=== PATIENT | female | born 1965 | race Caucasian/White ===

== ENCOUNTER 2017-06-24 18:05 | Emergency (ER) | payer MEDICARE, MEDICAID ==
[~2017-06-24] VITALS: Ht 170.2 cm; Wt 66.4 kg
[~2017-06-24 18:05] MED LIST: OLAN10TA3 PO
[2017-06-24] MEDS ORDERED: levoFLOXACIN 250mg tablet PO ONE (20:45)
[2017-06-24] MEDS ORDERED: glycopyrrolate 0.2mg/ml inj IV ONE (20:45)
[2017-06-24] MEDS ORDERED: normal saline 1000ML IV soln IV ONE (20:45)
[2017-06-24] MEDS ORDERED: oxyCODONE/APAP 10/325mg tablet PO ONE (20:45)
[2017-06-24] MEDS ORDERED: diphenoxylate/atropine tablet (Lomotil) PO ONE (21:55)
[2017-06-24 22:03] LABS: BASOPHILS % (AUTO) 0.3 % (0-1); EOSINOPHILS # (AUTO) 0.4 X10'3 (0-0.9); EOSINOPHILS % (AUTO) 6.2 % (0-6); HEMATOCRIT 28.6 % (35.0-45.0); HEMOGLOBIN 9.5 g/dl (12.0-16.0); LYMPHOCYTES # (AUTO) 1.8 X10'3 (1.1-4.8); LYMPHOCYTES % (AUTO) 27.5 % (21-51); MEAN CORPUSCULAR HEMOGLOBIN 31.1 PG (27.0-31.0); MEAN CORPUSCULAR HGB CONC 33.1 % (33.0-36.5); MEAN CORPUSCULAR VOLUME 93.8 FL (78-98); MEAN PLATELET VOLUME 6.9 FL (7.4-10.4); MONOCYTES # (AUTO) 0.5 X10'3 (0-0.9); MONOCYTES % (AUTO) 8.1 % (2-12); NEUTROPHILS # (AUTO) 3.7 X10'3 (1.8-7.7); NEUTROPHILS % (AUTO) 57.9 % (42-75); PLATELET COUNT 391 X10'3 (140-440); RED BLOOD COUNT 3.05 X10'6 (4.20-5.60); RED CELL DISTRIBUTION WIDTH 16.6 % (11.5-14.5); WHITE BLOOD COUNT 6.5 X10'3 (4.5-11.0)
[2017-06-24 22:16] LABS: ANION GAP 9 (8-16); BLOOD UREA NITROGEN 7 MG/DL (7-18); CHLORIDE 109 MMOL/L (99-107); CREATININE 1.02 MG/DL (0.40-0.90); GLUCOSE 91 MG/DL (70-104); POTASSIUM 3.1 MMOL/L (3.5-5.1); SODIUM 144 MMOL/L (135-145); TOTAL CARBON DIOXIDE 26.4 MMOL/L (24-32)
[2017-06-24] MEDS ORDERED: LEVO500T2 PO (22:16)
[2017-06-24] MEDS ORDERED: ONDA4TAB12 PO (22:16)
[2017-06-24] MEDS ORDERED: OXYC-138 PO (22:16)
[2017-06-24 22:17] LABS: ALANINE AMINOTRANSFERASE 38 U/L (12-78); ALBUMIN 3.2 G/DL (3.4-5.0); ALBUMIN/GLOBULIN RATIO 1.2 (1.1-1.5); ALKALINE PHOSPHATASE 55 IU/L (46-116); ASPARTATE AMINO TRANSFERASE 28 U/L (10-37); BILIRUBIN,TOTAL 0.3 MG/DL (0.1-1.0); BUN/CREATININE RATIO 6.9 (6.6-38.0); CALCIUM 7.6 MG/DL (8.5-10.1); MAGNESIUM 1.3 MG/DL (1.5-2.4); TOTAL PROTEIN 5.8 G/DL (6.4-8.2); eGFR 57 ML/MIN
[2017-06-24] MEDS ORDERED: POTA20TA19 PO (22:20)
[2017-06-24] MEDS ORDERED: iohexol 300mg/ml 100ml inj. ONE (23:24)
[2017-06-25] MEDS ORDERED: diphenoxylate/atropine tablet (Lomotil) PO ONE (00:40)
[2017-06-25] MEDS ORDERED: oxyCODONE/APAP 10/325mg tablet PO ONE (00:40)
[2017-06-25 07:22] VITALS: BP 117/59
[2017-06-26] MEDS ORDERED: LIDO35.4 TP (22:13)
[2017-06-26] MEDS ORDERED: SULF1TAB49 PO (22:30)
[2017-06-26] MEDS ORDERED: LACT1CAP65 PO (22:39)
[2017-06-26] MEDS ORDERED: DIPH1TAB PO (22:39)
== END 2017-06-25 00:40 | disposition home or self-care (01) ==
LOC: ER 18:06
DX: L03.317 Cellulitis of buttock (principal); Z88.5 Allergy status to narcotic agent; Z79.899 Other long term (current) drug therapy; Z90.49 Acquired absence of other specified parts of digestive tract
CPT/HCPCS: 36415; 74177; 80053; 83605; 83735; 84145; 85025; 87040; 96361; 96374; 99285; J3490; J7030; Q9967

== ENCOUNTER 2017-06-26 17:20 | Emergency (ER) | payer MEDICARE, MEDICAID ==
[~2017-06-26] VITALS: Ht 170.2 cm; Wt 54.5 kg
[~2017-06-26 17:20] MED LIST changes: +LEVO500T2 PO; +ONDA4TAB12 PO; +OXYC-138 PO; +POTA20TA19 PO
[2017-06-26] MEDS ORDERED: normal saline 1000ML IV soln IV ONE (21:05)
[2017-06-26] MEDS ORDERED: ondansetron 4mg rapidly disintigrating tab PO ONE (21:05)
[2017-06-26] MEDS ORDERED: morphine 4 MG/ML inj SYRINge IV ONE ×3 (21:05→23:30)
[2017-06-26] MEDS ORDERED: LIDOcaine Viscous 15ml cup MM ONE (21:05)
[2017-06-26 22:10] LABS: BASOPHILS % (AUTO) 0.1 % (0-1); EOSINOPHILS # (AUTO) 0.5 X10'3 (0-0.9); HEMATOCRIT 27.3 % (35.0-45.0); LYMPHOCYTES # (AUTO) 2.3 X10'3 (1.1-4.8); MEAN CORPUSCULAR HEMOGLOBIN 30.8 PG (27.0-31.0); MEAN CORPUSCULAR HGB CONC 32.9 % (33.0-36.5); MEAN CORPUSCULAR VOLUME 93.6 FL (78-98); MEAN PLATELET VOLUME 7.2 FL (7.4-10.4); MONOCYTES # (AUTO) 0.5 X10'3 (0-0.9); MONOCYTES % (AUTO) 7.3 % (2-12); NEUTROPHILS # (AUTO) 3.4 X10'3 (1.8-7.7); NEUTROPHILS % (AUTO) 51.6 % (42-75); PLATELET COUNT 361 X10'3 (140-440); RED BLOOD COUNT 2.92 X10'6 (4.20-5.60); WHITE BLOOD COUNT 6.6 X10'3 (4.5-11.0)
[2017-06-26] MEDS ORDERED: LIDO35.4 TP (22:13)
[2017-06-26 22:16] LABS: PARTIAL THROMBOPLASTIN TIME 22 SECONDS (22-32); PROTHROMBIN TIME 10.7 SECONDS (9.0-12.0)
[2017-06-26 22:20] LABS: ALANINE AMINOTRANSFERASE 30 U/L (12-78); ALBUMIN 2.9 G/DL (3.4-5.0); ALBUMIN/GLOBULIN RATIO 1.1 (1.1-1.5); ALKALINE PHOSPHATASE 50 IU/L (46-116); ANION GAP 10 (8-16); ASPARTATE AMINO TRANSFERASE 16 U/L (10-37); BILIRUBIN,TOTAL 0.3 MG/DL (0.1-1.0); BLOOD UREA NITROGEN 9 MG/DL (7-18); BUN/CREATININE RATIO 10.1 (6.6-38.0); CALCIUM 7.1 MG/DL (8.5-10.1); CHLORIDE 113 MMOL/L (99-107); CREATININE 0.89 MG/DL (0.40-0.90); GLUCOSE 89 MG/DL (70-104); POTASSIUM 3.4 MMOL/L (3.5-5.1); SODIUM 147 MMOL/L (135-145); TOTAL CARBON DIOXIDE 23.6 MMOL/L (24-32); TOTAL PROTEIN 5.5 G/DL (6.4-8.2); eGFR 67 ML/MIN
[2017-06-26] MEDS ORDERED: SULF1TAB49 PO (22:30)
[2017-06-26] MEDS ORDERED: magnesium 1 gm/2ml inj. 1 GM in normal saline 50ml IV soln 48 ML IV ONE ×2 (22:30→23:00)
[2017-06-26] MEDS ORDERED: LACT1CAP65 PO (22:39)
[2017-06-26] MEDS ORDERED: DIPH1TAB PO (22:39)
[2017-06-26] MEDS ORDERED: diphenoxylate/atropine tablet (Lomotil) PO ONE (22:40)
[2017-06-26] MEDS ORDERED: magnesium 2GM in 50ml NS 50 ML IV ONE (23:10)
[2017-06-27 02:31] VITALS: BP 134/58
[2017-06-27 07:43] LABS: C DIFF ANTIGEN NEGATIVE (NEGATIVE); C DIFF SPECIMEN=DIARRHEA? ACCEPTABLE; C DIFFICILE TOXINS A&B NEGATIVE (Neg)
[2017-06-27] MEDS ORDERED: NYST30CR2 TP (11:43)
== END 2017-06-27 02:33 | disposition home or self-care (01) ==
LOC: ER 17:20
DX: R19.7 Diarrhea, unspecified (principal); K62.89 Other specified diseases of anus and rectum; Z98.890 Other specified postprocedural states; Z88.5 Allergy status to narcotic agent; Z79.899 Other long term (current) drug therapy; Z88.8 Allergy status to other drugs, medicaments and biological substances
CPT/HCPCS: 36415; 80053; 83605; 83735; 84145; 85025; 85610; 85730; 87324; 87449; 96361; 96365; 96366; 96375; 96376; 99285; J2270; J3475; J7030

== ENCOUNTER 2017-07-07 21:51 | Emergency (ER) | payer MEDICARE, MEDICAID ==
[~2017-07-07] VITALS: Ht 170.2 cm; Wt 61.4 kg
[~2017-07-07 21:51] MED LIST changes: +DIPH1TAB PO; +LACT1CAP65 PO; -LEVO500T2 PO; +LIDO35.4 TP; +NYST30CR2 TP
[2017-07-07 21:57] VITALS: BP 109/60
[2017-07-07] MEDS ORDERED: LIDOCAINE 5% OINTMENT 35GM TP SCH (22:35)
[2017-07-07] MEDS ORDERED: HYDROmorphone 2mg tablet PO PRN (22:35)
[2017-07-07] MEDS ORDERED: LIDOcaine 2% 10ml TOPICAL JELLY (Urojet) MM ONE (23:00)
[2017-07-08] MEDS ORDERED: LIDO35.4 TOP (20:27)
== END 2017-07-07 23:16 | disposition home or self-care (01) ==
LOC: ER 21:51
DX: K62.89 Other specified diseases of anus and rectum (principal); Z88.5 Allergy status to narcotic agent; Z88.8 Allergy status to other drugs, medicaments and biological substances; Z79.899 Other long term (current) drug therapy
CPT/HCPCS: 99283; A6253; A6255

== ENCOUNTER 2017-07-08 19:58 | Emergency (ER) | payer MEDICARE, MEDICAID ==
[~2017-07-08] VITALS: Ht 170.2 cm; Wt 59.1 kg
[2017-07-08] MEDS ORDERED: LIDOcaine Viscous 15ml cup MM ONE ×2 (20:25→21:05)
[2017-07-08] MEDS ORDERED: morphine 4 MG/ML inj SYRINge IV ONE (20:25)
[2017-07-08] MEDS ORDERED: LIDO35.4 TOP (20:27)
[2017-07-08] MEDS ORDERED: morphine 4 MG/ML inj SYRINge IM ONE (20:50)
[2017-07-08 21:23] VITALS: BP 108/67
== END 2017-07-08 21:20 | disposition home or self-care (01) ==
LOC: ER 19:59
DX: K62.89 Other specified diseases of anus and rectum (principal); R19.7 Diarrhea, unspecified; Z88.5 Allergy status to narcotic agent; Z88.8 Allergy status to other drugs, medicaments and biological substances; Z79.899 Other long term (current) drug therapy
CPT/HCPCS: 96372; 99283; J2270

== ENCOUNTER 2017-10-28 16:24 | Inpatient (IN) | payer MEDICARE, MEDICAID ==
[~2017-10-28] VITALS: Ht 171.4 cm; Wt 74.4 kg
[~2017-10-28 16:24] MED LIST changes: +LIDO35.4 TOP; -POTA20TA19 PO
[2017-10-28] MEDS ORDERED: normal saline 1000ML IV soln IVB ONE (16:35)
[2017-10-28] MEDS ORDERED: ondansetron/PF 4mg/2ml inj IV ONE (16:35)
[2017-10-28] MEDS ORDERED: morphine 4 MG/ML inj SYRINge IV PRN (16:35)
[2017-10-28] MEDS: normal saline 1000ml 1,000 ML IV SCH (16:56)
[2017-10-28] MEDS ORDERED: magnesium 4gm in 100ml NS 100 ML IV PRN (17:00)
[2017-10-28] MEDS ORDERED: magnesium hydroxide 30ml (MOM) UD suspension PO PRN (17:00)
[2017-10-28] MEDS ORDERED: mag hydrox/Alum hydrox/simeth 30ml oral suspension PO PRN (17:00)
[2017-10-28] MEDS ORDERED: acetaminophen 325mg tablet PO PRN (17:00)
[2017-10-28] MEDS ORDERED: magnesium Cl slow-release 64mg tablet PO PRN (17:00)
[2017-10-28] MEDS ORDERED: potassium Cl 40MEQ/NS 500ml 500 ML IV PRN ×2 (17:00)
[2017-10-28] MEDS ORDERED: potassium Cl 20 mEq SR tablet PO PRN ×2 (17:00)
[2017-10-28] MEDS ORDERED: MIDO5TAB PO (17:27)
[2017-10-28] MEDS ORDERED: LIPA1CAP18 PO (17:27)
[2017-10-28] MEDS ORDERED: DULO60CA45 PO (17:27)
[2017-10-28] MEDS ORDERED: MORP15TA PO (17:27)
[2017-10-28] MEDS ORDERED: DIPH1TAB PO (17:27)
[2017-10-28] MEDS ORDERED: MORP-64 PO (17:27)
[2017-10-28] MEDS ORDERED: FERR325T32 PO (17:27)
[2017-10-28] MEDS ORDERED: HYDROmorphone 1 mg/ml syringe IV ONE (17:40)
[2017-10-28 18:01] LABS: BASOPHILS % (AUTO) 0.6 % (0-1); EOSINOPHILS # (AUTO) 0.3 X10'3 (0-0.9); EOSINOPHILS % (AUTO) 5.5 % (0-6); HEMATOCRIT 31.1 % (35.0-45.0); HEMOGLOBIN 10.4 g/dl (12.0-16.0); LYMPHOCYTES # (AUTO) 1.9 X10'3 (1.1-4.8); LYMPHOCYTES % (AUTO) 34.1 % (21-51); MEAN CORPUSCULAR HEMOGLOBIN 29.7 PG (27.0-31.0); MEAN CORPUSCULAR HGB CONC 33.3 % (33.0-36.5); MEAN CORPUSCULAR VOLUME 89.1 FL (78-98); MEAN PLATELET VOLUME 8.7 FL (7.4-10.4); MONOCYTES # (AUTO) 0.4 X10'3 (0-0.9); MONOCYTES % (AUTO) 6.6 % (2-12); NEUTROPHILS # (AUTO) 2.9 X10'3 (1.8-7.7); NEUTROPHILS % (AUTO) 53.2 % (42-75); PLATELET COUNT 233 X10'3 (140-440); RED BLOOD COUNT 3.49 X10'6 (4.20-5.60); RED CELL DISTRIBUTION WIDTH 14.1 % (11.5-14.5); WHITE BLOOD COUNT 5.5 X10'3 (4.5-11.0)
[2017-10-28 18:17] LABS: ALANINE AMINOTRANSFERASE 35 U/L (12-78); ALBUMIN 3.5 G/DL (3.4-5.0); ALBUMIN/GLOBULIN RATIO 1.1 (1.1-1.5); ALKALINE PHOSPHATASE 59 IU/L (46-116); ANION GAP 6 (8-16); ASPARTATE AMINO TRANSFERASE 18 U/L (10-37); BILIRUBIN,TOTAL 0.4 MG/DL (0.1-1.0); BLOOD UREA NITROGEN 18 MG/DL (7-18); BUN/CREATININE RATIO 15.9 (6.6-38.0); CALCIUM 9.6 MG/DL (8.5-10.1); CHLORIDE 103 MMOL/L (99-107); CREATININE 1.13 MG/DL (0.40-0.90); GLUCOSE 83 MG/DL (70-104); LIPASE 153 U/L (73-393); POTASSIUM 3.7 MMOL/L (3.5-5.1); SODIUM 139 MMOL/L (135-145); TOTAL CARBON DIOXIDE 30.5 MMOL/L (24-32); TOTAL PROTEIN 6.7 G/DL (6.4-8.2); eGFR 50 ML/MIN
[2017-10-28] MEDS ORDERED: non-formulary drug (Morphine Sulfate 1 TAB) PO PRN (18:20)
[2017-10-28] MEDS ORDERED: morphine 10 MG/5 ML UD oral solution PO PRN ×2 (18:35)
[2017-10-28 20:00] VITALS: BP 111/69
[2017-10-28] MEDS ORDERED: morphine ER 15mg tablet PO SCH (20:00)
[2017-10-28] MEDS ORDERED: DULOXETINE HCL PO SCH (20:00)
[2017-10-28] MEDS: duloxetine 30mg CAPSULE.DR PO SCH (21:00)
[2017-10-28] MEDS: midodrine tablet 2.5 MG TABLET PO SCH (21:00)
[2017-10-28] MEDS: diphenoxylate/atropine tablet (Lomotil) PO PRN (21:03)
[2017-10-28] MEDS: morphine 10 MG/5 ML UD oral solution PO PRN (22:52)
[2017-10-29] VITALS (47 sets, daily range): BP systolic 75–113; BP diastolic 28–75
[2017-10-29] MEDS: morphine 10 MG/5 ML UD oral solution PO PRN ×2 (02:49→10:08)
[2017-10-29] MEDS: diphenoxylate/atropine tablet (Lomotil) PO PRN ×2 (02:49→10:00)
[2017-10-29] MEDS: normal saline 1000ml 1,000 ML IV SCH ×3 (02:56→23:49)
[2017-10-29 05:19] LABS: CLARITY,URINE CLEAR (Clear); COLOR,URINE YELLOW (Yellow); GLUCOSE, URINE NEGATIVE (Neg); KETONES,URINE NEGATIVE (Neg); LEUKOCYTE ESTERASE ,URINE NEGATIVE (Neg); NITRITES, URINE NEGATIVE (Neg); OCCULT BLOOD,URINE NEGATIVE (Neg); PROTEIN,URINE NEGATIVE (Neg); UROBILINOGEN,URINE 0.2 E.U/dL (0.2-1.0)
[2017-10-29 05:24] LABS: UA COLLECTION TYPE CLN CATCH MIDSTREAM
[2017-10-29 05:32] LABS: BASOPHILS % (AUTO) 0.5 % (0-1); EOSINOPHILS # (AUTO) 0.2 X10'3 (0-0.9); EOSINOPHILS % (AUTO) 5.2 % (0-6); HEMATOCRIT 28.5 % (35.0-45.0); HEMOGLOBIN 9.6 g/dl (12.0-16.0); LYMPHOCYTES # (AUTO) 1.5 X10'3 (1.1-4.8); LYMPHOCYTES % (AUTO) 35.8 % (21-51); MEAN CORPUSCULAR HEMOGLOBIN 30.1 PG (27.0-31.0); MEAN CORPUSCULAR HGB CONC 33.6 % (33.0-36.5); MEAN CORPUSCULAR VOLUME 89.5 FL (78-98); MEAN PLATELET VOLUME 8.8 FL (7.4-10.4); MONOCYTES # (AUTO) 0.4 X10'3 (0-0.9); MONOCYTES % (AUTO) 9.5 % (2-12); NEUTROPHILS # (AUTO) 2.1 X10'3 (1.8-7.7); PLATELET COUNT 196 X10'3 (140-440); RED BLOOD COUNT 3.18 X10'6 (4.20-5.60); RED CELL DISTRIBUTION WIDTH 13.9 % (11.5-14.5); WHITE BLOOD COUNT 4.3 X10'3 (4.5-11.0)
[2017-10-29 05:50] LABS: ALANINE AMINOTRANSFERASE 28 U/L (12-78); ALBUMIN/GLOBULIN RATIO 1.1 (1.1-1.5); ALKALINE PHOSPHATASE 51 IU/L (46-116); ANION GAP 5 (8-16); ASPARTATE AMINO TRANSFERASE 21 U/L (10-37); BILIRUBIN,TOTAL 0.4 MG/DL (0.1-1.0); BLOOD UREA NITROGEN 15 MG/DL (7-18); BUN/CREATININE RATIO 15.8 (6.6-38.0); CALCIUM 8.4 MG/DL (8.5-10.1); CHLORIDE 109 MMOL/L (99-107); CREATININE 0.95 MG/DL (0.40-0.90); GLUCOSE 89 MG/DL (70-104); MAGNESIUM 1.5 MG/DL (1.5-2.4); POTASSIUM 3.4 MMOL/L (3.5-5.1); SODIUM 143 MMOL/L (135-145); TOTAL CARBON DIOXIDE 28.6 MMOL/L (24-32); TOTAL PROTEIN 5.8 G/DL (6.4-8.2); eGFR 62 ML/MIN
[2017-10-29] MEDS ORDERED: LIPASE PO SCH (08:00)
[2017-10-29] MEDS ORDERED: CREON 36000 UNIT PO SCH (08:00)
[2017-10-29] MEDS ORDERED: PROTEASE PO SCH (08:00)
[2017-10-29] MEDS: K and/or MAG REPLACEMENT MC SCH (08:00)
[2017-10-29] MEDS ORDERED: AMYLASE PO SCH (08:00)
[2017-10-29] MEDS ORDERED: morphine ER 15mg tablet PO SCH (08:00)
[2017-10-29] MEDS: duloxetine 30mg CAPSULE.DR PO SCH ×2 (08:27→23:36)
[2017-10-29] MEDS: midodrine tablet 2.5 MG TABLET PO SCH ×3 (08:27→23:37)
[2017-10-29 12:15] LABS: C DIFF ANTIGEN NEGATIVE (NEGATIVE); C DIFF SPECIMEN=DIARRHEA? ACCEPTABLE; C DIFFICILE TOXINS A&B NEGATIVE (Neg)
[2017-10-29] MEDS: HYDROmorphone 1 mg/ml syringe IV PRN ×2 (12:15→22:34)
[2017-10-29] MEDS ORDERED: ringers solution, lacted 1,000 ML IV SCH (12:39)
[2017-10-29] MEDS ORDERED: meperidine/PF 25mg/ml syringe IV PRN ×3 (12:40)
[2017-10-29] MEDS ORDERED: ondansetron/PF 4mg/2ml inj IV PRN (12:40)
[2017-10-29] MEDS ORDERED: morphine 4 MG/ML inj SYRINge IV PRN ×2 (12:40)
[2017-10-29] MEDS ORDERED: desflurane 240ml liquid inh. IH ONE (14:40)
[2017-10-29] MEDS ORDERED: midazolam 2 mg/2 ml injection ONE (14:47)
[2017-10-29] MEDS ORDERED: fentaNYL /PF 50mcg/ml 5ml ampule ONE (14:48)
[2017-10-29] MEDS ORDERED: propofol inj 20 ML IV ONE (14:50)
[2017-10-29] MEDS ORDERED: LIDOcaine 1%/PF 5ML 10 MG/ML VIAL ONE (14:50)
[2017-10-29] MEDS ORDERED: rocuronium 10mg/ml inj IV ONE (14:54)
[2017-10-29] MEDS ORDERED: ceFOXitin 1000 MG inj ONE ×2 (15:26)
[2017-10-29] MEDS ORDERED: ondansetron/PF 4mg/2ml inj ONE (15:39)
[2017-10-29] MEDS: LIPASE/PROTEASE/AMYLASE 4,200 unit CAPSULE.DR PO SCH (17:30)
[2017-10-29 17:35] LABS: ISTAT CREATININE 0.8 mg/dL (0.6-1.1); ISTAT HGB 9.9 g/dl (12.0-16.0); ISTAT IONIZED CALCIUM 1.24 mmol/L (1.03-1.32); ISTAT K 3.3 mmol/L (3.5-5.1); POC BUN/CREATININE RATIO 13.8 (6.6-38.0)
[2017-10-29 19:12] LABS: BASOPHILS % (AUTO) 0.2 % (0-1); EOSINOPHILS # (AUTO) 0.1 X10'3 (0-0.9); EOSINOPHILS % (AUTO) 0.9 % (0-6); HEMATOCRIT 29.7 % (35.0-45.0); HEMOGLOBIN 9.6 g/dl (12.0-16.0); LYMPHOCYTES # (AUTO) 2.1 X10'3 (1.1-4.8); LYMPHOCYTES % (AUTO) 17.1 % (21-51); MEAN CORPUSCULAR HEMOGLOBIN 29.6 PG (27.0-31.0); MEAN CORPUSCULAR HGB CONC 32.5 % (33.0-36.5); MEAN CORPUSCULAR VOLUME 91.3 FL (78-98); MEAN PLATELET VOLUME 8.6 FL (7.4-10.4); MONOCYTES # (AUTO) 0.1 X10'3 (0-0.9); MONOCYTES % (AUTO) 0.6 % (2-12); NEUTROPHILS # (AUTO) 9.9 X10'3 (1.8-7.7); NEUTROPHILS % (AUTO) 81.2 % (42-75); PLATELET COUNT 255 X10'3 (140-440); RED BLOOD COUNT 3.25 X10'6 (4.20-5.60); RED CELL DISTRIBUTION WIDTH 14.1 % (11.5-14.5); WHITE BLOOD COUNT 12.2 X10'3 (4.5-11.0)
[2017-10-29] MEDS ORDERED: albumin (Human) 5% 250ml 250 ML IV ONE (19:21)
[2017-10-29] MEDS ORDERED: albumin (Human) 5% 250 ML IV solution IV STA (19:25)
[2017-10-29] MEDS ORDERED: acetaminophen 1,000mg/100ml IV 100 ML IV ONE (19:50)
[2017-10-29] MEDS: ondansetron/PF 4mg/2ml inj IV PRN (22:34)
[2017-10-30] VITALS (24 sets, daily range): BP systolic 111–140; BP diastolic 65–77
[2017-10-30] MEDS: HYDROmorphone 1 mg/ml syringe IV PRN ×8 (02:37→23:30)
[2017-10-30] MEDS: ceFOXitin 1 GM ADDVANTAGE BAG 50 ML IV SCH ×4 (02:40→20:26)
[2017-10-30 05:11] LABS: BASOPHILS % (AUTO) 0 % (0-1); EOSINOPHILS % (AUTO) 0 % (0-6); HEMATOCRIT 36.2 % (35.0-45.0); LYMPHOCYTES # (AUTO) 0.5 X10'3 (1.1-4.8); LYMPHOCYTES % (AUTO) 2.9 % (21-51); MEAN CORPUSCULAR HEMOGLOBIN 28.9 PG (27.0-31.0); MEAN CORPUSCULAR HGB CONC 33.1 % (33.0-36.5); MEAN CORPUSCULAR VOLUME 87.2 FL (78-98); MEAN PLATELET VOLUME 8.6 FL (7.4-10.4); MONOCYTES # (AUTO) 0.6 X10'3 (0-0.9); MONOCYTES % (AUTO) 3.3 % (2-12); NEUTROPHILS # (AUTO) 16.4 X10'3 (1.8-7.7); NEUTROPHILS % (AUTO) 93.8 % (42-75); PLATELET COUNT 168 X10'3 (140-440); RED BLOOD COUNT 4.15 X10'6 (4.20-5.60); RED CELL DISTRIBUTION WIDTH 16.2 % (11.5-14.5); WHITE BLOOD COUNT 17.4 X10'3 (4.5-11.0)
[2017-10-30 05:20] LABS: ALANINE AMINOTRANSFERASE 23 U/L (12-78); ALBUMIN/GLOBULIN RATIO 1.2 (1.1-1.5); ALKALINE PHOSPHATASE 36 IU/L (46-116); ANION GAP 15 (8-16); ASPARTATE AMINO TRANSFERASE 22 U/L (10-37); BILIRUBIN,TOTAL 1.9 MG/DL (0.1-1.0); BLOOD UREA NITROGEN 17 MG/DL (7-18); BUN/CREATININE RATIO 14.7 (6.6-38.0); CALCIUM 7.8 MG/DL (8.5-10.1); CHLORIDE 109 MMOL/L (99-107); CREATININE 1.16 MG/DL (0.40-0.90); GLUCOSE 150 MG/DL (70-104); MAGNESIUM 1.2 MG/DL (1.5-2.4); POTASSIUM 3.9 MMOL/L (3.5-5.1); SODIUM 143 MMOL/L (135-145); TOTAL CARBON DIOXIDE 19.4 MMOL/L (24-32); TOTAL PROTEIN 5.6 G/DL (6.4-8.2); eGFR 49 ML/MIN
[2017-10-30] MEDS: magnesium 1gm/100ml D5W IVPB 100 ML IV PRN ×2 (05:55→09:49)
[2017-10-30] MEDS: LIPASE/PROTEASE/AMYLASE 4,200 unit CAPSULE.DR PO SCH ×3 (07:30→17:09)
[2017-10-30] MEDS: duloxetine 30mg CAPSULE.DR PO SCH ×2 (07:38→20:26)
[2017-10-30] MEDS: normal saline 1000ml 1,000 ML IV SCH ×2 (07:45→18:56)
[2017-10-30] MEDS: K and/or MAG REPLACEMENT MC SCH (08:00)
[2017-10-30] MEDS: midodrine tablet 2.5 MG TABLET PO SCH ×3 (08:00→20:26)
[2017-10-30] MEDS ORDERED: normal saline 1000ml 1,000 ML IV ONE (13:35)
[2017-10-30] MEDS ORDERED: HYDROmorphone 1 mg/ml syringe IV PRN (13:35)
[2017-10-30] MEDS: ondansetron/PF 4mg/2ml inj IV PRN ×2 (13:44→20:39)
[2017-10-31] VITALS (19 sets, daily range): BP systolic 116–148; BP diastolic 63–87
[2017-10-31] MEDS: ceFOXitin 1 GM ADDVANTAGE BAG 50 ML IV SCH ×2 (02:15→07:18)
[2017-10-31] MEDS: HYDROmorphone 1 mg/ml syringe IV PRN ×8 (02:16→16:09)
[2017-10-31] MEDS: normal saline 1000ml 1,000 ML IV SCH ×2 (05:20→16:09)
[2017-10-31 06:21] LABS: BASOPHILS % (AUTO) 0.2 % (0-1); EOSINOPHILS # (AUTO) 0.1 X10'3 (0-0.9); EOSINOPHILS % (AUTO) 0.7 % (0-6); HEMATOCRIT 31.5 % (35.0-45.0); HEMOGLOBIN 10.7 g/dl (12.0-16.0); LYMPHOCYTES # (AUTO) 0.8 X10'3 (1.1-4.8); LYMPHOCYTES % (AUTO) 4.5 % (21-51); MEAN CORPUSCULAR HEMOGLOBIN 29.3 PG (27.0-31.0); MEAN CORPUSCULAR HGB CONC 33.8 % (33.0-36.5); MEAN CORPUSCULAR VOLUME 86.5 FL (78-98); MEAN PLATELET VOLUME 8.4 FL (7.4-10.4); MONOCYTES # (AUTO) 0.9 X10'3 (0-0.9); MONOCYTES % (AUTO) 4.8 % (2-12); NEUTROPHILS # (AUTO) 16.7 X10'3 (1.8-7.7); NEUTROPHILS % (AUTO) 89.8 % (42-75); PLATELET COUNT 168 X10'3 (140-440); RED BLOOD COUNT 3.64 X10'6 (4.20-5.60); WHITE BLOOD COUNT 18.6 X10'3 (4.5-11.0)
[2017-10-31] MEDS: LIPASE/PROTEASE/AMYLASE 4,200 unit CAPSULE.DR PO SCH ×2 (07:19→13:20)
[2017-10-31] MEDS: midodrine tablet 2.5 MG TABLET PO SCH ×3 (07:19→20:00)
[2017-10-31] MEDS: duloxetine 30mg CAPSULE.DR PO SCH ×2 (07:19→19:55)
[2017-10-31 07:21] LABS: ALANINE AMINOTRANSFERASE 28 U/L (12-78); ALBUMIN 2.5 G/DL (3.4-5.0); ALBUMIN/GLOBULIN RATIO 0.8 (1.1-1.5); ALKALINE PHOSPHATASE 39 IU/L (46-116); ANION GAP 6 (8-16); ASPARTATE AMINO TRANSFERASE 24 U/L (10-37); BILIRUBIN,TOTAL 0.4 MG/DL (0.1-1.0); BLOOD UREA NITROGEN 15 MG/DL (7-18); CALCIUM 8.1 MG/DL (8.5-10.1); CHLORIDE 109 MMOL/L (99-107); GLUCOSE 112 MG/DL (70-104); MAGNESIUM 2.5 MG/DL (1.5-2.4); POTASSIUM 3.1 MMOL/L (3.5-5.1); SODIUM 138 MMOL/L (135-145); TOTAL CARBON DIOXIDE 22.9 MMOL/L (24-32); TOTAL PROTEIN 5.6 G/DL (6.4-8.2); eGFR 58 ML/MIN
[2017-10-31] MEDS: K and/or MAG REPLACEMENT MC SCH (08:00)
[2017-10-31] MEDS ORDERED: total parenteral nutrition 1 EACH, calcium gluconate 12 MEQ, magnesium 16 MEQ, sodium 8... IV SCH ×14 (09:25)
[2017-10-31] MEDS: ondansetron/PF 4mg/2ml inj IV PRN (11:09)
[2017-10-31] MEDS ORDERED: naloxone 0.4 mg/ml inj IV PRN (14:55)
[2017-10-31] MEDS: piperacillin/tazo 3.375gm/50ml 50 ML IV SCH ×2 (16:08→19:56)
[2017-10-31] MEDS: HYDROmorphone/NS 1 mg/ml CADD 50 ML IV SCH ×4 (17:00→23:00)
[2017-10-31 19:13] LABS: ALANINE AMINOTRANSFERASE 19 U/L (12-78); ALBUMIN 2.2 G/DL (3.4-5.0); ALBUMIN/GLOBULIN RATIO 0.7 (1.1-1.5); ALKALINE PHOSPHATASE 44 IU/L (46-116); ANION GAP 10 (8-16); ASPARTATE AMINO TRANSFERASE 23 U/L (10-37); BILIRUBIN,TOTAL 0.5 MG/DL (0.1-1.0); BLOOD UREA NITROGEN 12 MG/DL (7-18); BUN/CREATININE RATIO 12.9 (6.6-38.0); CALCIUM 7.7 MG/DL (8.5-10.1); CHLORIDE 108 MMOL/L (99-107); CREATININE 0.93 MG/DL (0.40-0.90); GLUCOSE 87 MG/DL (70-104); MAGNESIUM 2.1 MG/DL (1.5-2.4); PHOSPHORUS 1.4 MG/DL (2.3-4.5); POTASSIUM 3.5 MMOL/L (3.5-5.1); PREALBUMIN 10.6 MG/DL (19-36); SODIUM 142 MMOL/L (135-145); TOTAL CARBON DIOXIDE 24.2 MMOL/L (24-32); TOTAL PROTEIN 5.2 G/DL (6.4-8.2); TRIGLYCERIDES 56 MG/DL (20-135); eGFR 63 ML/MIN
[2017-10-31] MEDS ORDERED: Dextrose 10%-water IV solution 1,000 ML IV PRN (20:00)
[2017-10-31] MEDS: [UNRECOGNIZED DRUG - REMARK] IV SCH ×4 (20:00)
[2017-11-01] VITALS: BP 105/58
[2017-11-01] MEDS: normal saline 1000ml 1,000 ML IV SCH ×3 (00:37→21:38)
[2017-11-01] MEDS: HYDROmorphone/NS 1 mg/ml CADD 50 ML IV SCH ×13 (01:00→23:11)
[2017-11-01] MEDS: piperacillin/tazo 3.375gm/50ml 50 ML IV SCH ×4 (01:25→20:06)
[2017-11-01] MEDS: ondansetron/PF 4mg/2ml inj IV PRN ×2 (04:00→12:20)
[2017-11-01 05:14] LABS: BASOPHILS % (AUTO) 0.1 % (0-1); EOSINOPHILS # (AUTO) 0.2 X10'3 (0-0.9); EOSINOPHILS % (AUTO) 1.4 % (0-6); HEMATOCRIT 28.2 % (35.0-45.0); HEMOGLOBIN 9.5 g/dl (12.0-16.0); LYMPHOCYTES # (AUTO) 0.9 X10'3 (1.1-4.8); LYMPHOCYTES % (AUTO) 6.3 % (21-51); MEAN CORPUSCULAR HEMOGLOBIN 29.1 PG (27.0-31.0); MEAN CORPUSCULAR HGB CONC 33.6 % (33.0-36.5); MEAN CORPUSCULAR VOLUME 86.5 FL (78-98); MEAN PLATELET VOLUME 8.8 FL (7.4-10.4); MONOCYTES # (AUTO) 0.6 X10'3 (0-0.9); MONOCYTES % (AUTO) 3.8 % (2-12); NEUTROPHILS # (AUTO) 13.2 X10'3 (1.8-7.7); NEUTROPHILS % (AUTO) 88.4 % (42-75); PLATELET COUNT 161 X10'3 (140-440); RED BLOOD COUNT 3.26 X10'6 (4.20-5.60); RED CELL DISTRIBUTION WIDTH 16.8 % (11.5-14.5); WHITE BLOOD COUNT 14.9 X10'3 (4.5-11.0)
[2017-11-01 05:41] LABS: ALANINE AMINOTRANSFERASE 22 U/L (12-78); ALBUMIN 2.2 G/DL (3.4-5.0); ALBUMIN/GLOBULIN RATIO 0.7 (1.1-1.5); ALKALINE PHOSPHATASE 41 IU/L (46-116); ANION GAP 9 (8-16); ASPARTATE AMINO TRANSFERASE 20 U/L (10-37); BILIRUBIN,TOTAL 0.7 MG/DL (0.1-1.0); BLOOD UREA NITROGEN 13 MG/DL (7-18); BUN/CREATININE RATIO 13.8 (6.6-38.0); CALCIUM 7.9 MG/DL (8.5-10.1); CHLORIDE 107 MMOL/L (99-107); CREATININE 0.94 MG/DL (0.40-0.90); GLUCOSE 69 MG/DL (70-104); PHOSPHORUS 1.7 MG/DL (2.3-4.5); POTASSIUM 3.3 MMOL/L (3.5-5.1); SODIUM 138 MMOL/L (135-145); TOTAL CARBON DIOXIDE 22.5 MMOL/L (24-32); TOTAL PROTEIN 5.3 G/DL (6.4-8.2); eGFR 62 ML/MIN
[2017-11-01 07:00] VITALS: BP 113/66
[2017-11-01] MEDS: K and/or MAG REPLACEMENT MC SCH (08:00)
[2017-11-01] MEDS: midodrine tablet 2.5 MG TABLET PO SCH ×3 (08:47→20:06)
[2017-11-01] MEDS: duloxetine 30mg CAPSULE.DR PO SCH ×2 (08:48→20:06)
[2017-11-01 11:00] VITALS: BP 109/60
[2017-11-01 15:36] LABS: ALANINE AMINOTRANSFERASE 25 U/L (12-78); ALBUMIN/GLOBULIN RATIO 0.6 (1.1-1.5); ALKALINE PHOSPHATASE 43 IU/L (46-116); ANION GAP 11 (8-16); ASPARTATE AMINO TRANSFERASE 20 U/L (10-37); BILIRUBIN,TOTAL 0.6 MG/DL (0.1-1.0); BLOOD UREA NITROGEN 13 MG/DL (7-18); BUN/CREATININE RATIO 12.9 (6.6-38.0); CALCIUM 7.6 MG/DL (8.5-10.1); CHLORIDE 107 MMOL/L (99-107); CREATININE 1.01 MG/DL (0.40-0.90); GLUCOSE 80 MG/DL (70-104); MAGNESIUM 1.9 MG/DL (1.5-2.4); PHOSPHORUS 1.7 MG/DL (2.3-4.5); POTASSIUM 3.3 MMOL/L (3.5-5.1); PREALBUMIN 9.1 MG/DL (19-36); SODIUM 140 MMOL/L (135-145); TOTAL CARBON DIOXIDE 22.5 MMOL/L (24-32); TOTAL PROTEIN 5.1 G/DL (6.4-8.2); TRIGLYCERIDES 77 MG/DL (20-135); eGFR 57 ML/MIN
[2017-11-01] MEDS ORDERED: potassium Cl 40MEQ/NS 500ml 500 ML IV PRN ×2 (16:05)
[2017-11-01] MEDS ORDERED: potassium Cl 20 mEq SR tablet PO PRN (16:05)
[2017-11-01] MEDS ORDERED: magnesium 1gm/100ml D5W IVPB 100 ML IV PRN (16:05)
[2017-11-01] MEDS ORDERED: magnesium Cl slow-release 64mg tablet PO PRN (16:05)
[2017-11-01] MEDS ORDERED: magnesium 4gm in 100ml NS 100 ML IV PRN (16:05)
[2017-11-01] MEDS: [UNRECOGNIZED DRUG - REMARK] IV SCH ×4 (16:22)
[2017-11-01 18:00] VITALS: BP 111/67
[2017-11-02] VITALS: BP 105/53
[2017-11-02] MEDS: piperacillin/tazo 3.375gm/50ml 50 ML IV SCH ×4 (01:06→19:32)
[2017-11-02] MEDS: ondansetron/PF 4mg/2ml inj IV PRN ×2 (01:07→20:38)
[2017-11-02] MEDS: HYDROmorphone/NS 1 mg/ml CADD 50 ML IV SCH ×11 (03:00→23:00)
[2017-11-02] MEDS: [UNRECOGNIZED DRUG - REMARK] IV SCH ×8 (04:34→16:39)
[2017-11-02 06:12] LABS: BASOPHILS % (AUTO) 0.3 % (0-1); EOSINOPHILS # (AUTO) 0.2 X10'3 (0-0.9); EOSINOPHILS % (AUTO) 2.6 % (0-6); HEMATOCRIT 25.7 % (35.0-45.0); HEMOGLOBIN 8.6 g/dl (12.0-16.0); LYMPHOCYTES # (AUTO) 1.1 X10'3 (1.1-4.8); LYMPHOCYTES % (AUTO) 15.9 % (21-51); MEAN CORPUSCULAR HEMOGLOBIN 28.9 PG (27.0-31.0); MEAN CORPUSCULAR HGB CONC 33.4 % (33.0-36.5); MEAN CORPUSCULAR VOLUME 86.5 FL (78-98); MEAN PLATELET VOLUME 8.6 FL (7.4-10.4); MONOCYTES # (AUTO) 0.5 X10'3 (0-0.9); MONOCYTES % (AUTO) 6.3 % (2-12); NEUTROPHILS # (AUTO) 5.4 X10'3 (1.8-7.7); NEUTROPHILS % (AUTO) 74.9 % (42-75); PLATELET COUNT 145 X10'3 (140-440); RED BLOOD COUNT 2.97 X10'6 (4.20-5.60); RED CELL DISTRIBUTION WIDTH 16.2 % (11.5-14.5); WHITE BLOOD COUNT 7.2 X10'3 (4.5-11.0)
[2017-11-02 07:00] VITALS: BP 112/67
[2017-11-02] MEDS: K and/or MAG REPLACEMENT MC SCH (08:00)
[2017-11-02 08:09] LABS: ALANINE AMINOTRANSFERASE 20 U/L (12-78); ALBUMIN 1.9 G/DL (3.4-5.0); ALBUMIN/GLOBULIN RATIO 0.7 (1.1-1.5); ALKALINE PHOSPHATASE 35 IU/L (46-116); ANION GAP 7 (8-16); ASPARTATE AMINO TRANSFERASE 14 U/L (10-37); BILIRUBIN,TOTAL 0.4 MG/DL (0.1-1.0); BLOOD UREA NITROGEN 9 MG/DL (7-18); BUN/CREATININE RATIO 9.6 (6.6-38.0); CALCIUM 7.8 MG/DL (8.5-10.1); CHLORIDE 110 MMOL/L (99-107); CREATININE 0.94 MG/DL (0.40-0.90); GLUCOSE 108 MG/DL (70-104); MAGNESIUM 1.7 MG/DL (1.5-2.4); PHOSPHORUS 1.7 MG/DL (2.3-4.5); POTASSIUM 3.4 MMOL/L (3.5-5.1); SODIUM 141 MMOL/L (135-145); TOTAL CARBON DIOXIDE 24.2 MMOL/L (24-32); TOTAL PROTEIN 4.8 G/DL (6.4-8.2); eGFR 62 ML/MIN
[2017-11-02] MEDS: normal saline 1000ml 1,000 ML IV SCH ×2 (08:58→17:41)
[2017-11-02] MEDS: duloxetine 30mg CAPSULE.DR PO SCH ×2 (09:00→19:31)
[2017-11-02] MEDS: midodrine tablet 2.5 MG TABLET PO SCH ×3 (09:00→20:40)
[2017-11-02 11:00] VITALS: BP 125/65
[2017-11-02 18:00] VITALS: BP 132/91
[2017-11-02 23:25] VITALS: BP 128/78
[2017-11-03] MEDS: HYDROmorphone/NS 1 mg/ml CADD 50 ML IV SCH ×9 (01:00→13:47)
[2017-11-03] MEDS: normal saline 1000ml 1,000 ML IV SCH ×3 (01:41→22:51)
[2017-11-03] MEDS: piperacillin/tazo 3.375gm/50ml 50 ML IV SCH ×2 (01:41→08:28)
[2017-11-03 05:11] LABS: MAGNESIUM 1.6 MG/DL (1.5-2.4); POTASSIUM 3.2 MMOL/L (3.5-5.1); PREALBUMIN 11.2 MG/DL (19-36)
[2017-11-03 07:23] VITALS: BP 129/78
[2017-11-03] MEDS: K and/or MAG REPLACEMENT MC SCH (08:00)
[2017-11-03] MEDS: [UNRECOGNIZED DRUG - REMARK] IV SCH ×8 (08:15→23:55)
[2017-11-03] MEDS: duloxetine 30mg CAPSULE.DR PO SCH ×2 (08:28→20:40)
[2017-11-03] MEDS: midodrine tablet 2.5 MG TABLET PO SCH ×3 (08:29→20:41)
[2017-11-03] MEDS: potassium Cl 20 mEq SR tablet PO PRN ×3 (08:30→20:40)
[2017-11-03] MEDS: CADD PCA waste documentation MC PRN ×2 (12:54→21:38)
[2017-11-03 19:50] VITALS: BP 121/73
[2017-11-03] MEDS: morphine ER 15mg tablet PO SCH (20:40)
[2017-11-04] VITALS: BP 142/84
[2017-11-04] MEDS: morphine IR (immed. release) 30mg tablet PO PRN ×4 (03:53→23:52)
[2017-11-04 05:30] LABS: MAGNESIUM 1.5 MG/DL (1.5-2.4); POTASSIUM 3.3 MMOL/L (3.5-5.1)
[2017-11-04 06:56] VITALS: BP 132/83
[2017-11-04] MEDS: duloxetine 30mg CAPSULE.DR PO SCH ×2 (07:54→20:55)
[2017-11-04] MEDS: morphine ER 15mg tablet PO SCH ×2 (07:54→20:56)
[2017-11-04] MEDS: ondansetron/PF 4mg/2ml inj IV PRN ×2 (07:58→18:25)
[2017-11-04] MEDS: potassium Cl 20 mEq SR tablet PO PRN ×2 (07:59→14:21)
[2017-11-04] MEDS: K and/or MAG REPLACEMENT MC SCH (08:00)
[2017-11-04] MEDS: normal saline 1000ml 1,000 ML IV SCH ×2 (08:02→18:25)
[2017-11-04] MEDS: midodrine tablet 2.5 MG TABLET PO SCH ×3 (10:22→20:56)
[2017-11-04 11:21] VITALS: BP 130/81
[2017-11-04 15:07] LABS: BASOPHILS % (AUTO) 0.1 % (0-1); EOSINOPHILS # (AUTO) 0.3 X10'3 (0-0.9); EOSINOPHILS % (AUTO) 3.4 % (0-6); HEMATOCRIT 28.7 % (35.0-45.0); HEMOGLOBIN 9.4 g/dl (12.0-16.0); LYMPHOCYTES # (AUTO) 1.1 X10'3 (1.1-4.8); LYMPHOCYTES % (AUTO) 14.6 % (21-51); MEAN CORPUSCULAR HEMOGLOBIN 28.3 PG (27.0-31.0); MEAN CORPUSCULAR HGB CONC 32.7 % (33.0-36.5); MEAN CORPUSCULAR VOLUME 86.4 FL (78-98); MEAN PLATELET VOLUME 7.9 FL (7.4-10.4); MONOCYTES # (AUTO) 0.7 X10'3 (0-0.9); MONOCYTES % (AUTO) 8.7 % (2-12); NEUTROPHILS # (AUTO) 5.6 X10'3 (1.8-7.7); NEUTROPHILS % (AUTO) 73.2 % (42-75); PLATELET COUNT 223 X10'3 (140-440); RED BLOOD COUNT 3.32 X10'6 (4.20-5.60); RED CELL DISTRIBUTION WIDTH 15.6 % (11.5-14.5); WHITE BLOOD COUNT 7.7 X10'3 (4.5-11.0)
[2017-11-04 15:23] LABS: ALANINE AMINOTRANSFERASE 16 U/L (12-78); ALBUMIN 2.1 G/DL (3.4-5.0); ALBUMIN/GLOBULIN RATIO 0.6 (1.1-1.5); ALKALINE PHOSPHATASE 45 IU/L (46-116); ANION GAP 5 (8-16); ASPARTATE AMINO TRANSFERASE 7 U/L (10-37); BILIRUBIN,TOTAL 0.4 MG/DL (0.1-1.0); BLOOD UREA NITROGEN 11 MG/DL (7-18); BUN/CREATININE RATIO 14.7 (6.6-38.0); CALCIUM 8.4 MG/DL (8.5-10.1); CHLORIDE 105 MMOL/L (99-107); CREATININE 0.75 MG/DL (0.40-0.90); GLUCOSE 108 MG/DL (70-104); POTASSIUM 3.4 MMOL/L (3.5-5.1); SODIUM 142 MMOL/L (135-145); TOTAL CARBON DIOXIDE 31.6 MMOL/L (24-32); TOTAL PROTEIN 5.5 G/DL (6.4-8.2); eGFR 81 ML/MIN
[2017-11-04] MEDS ORDERED: fat emulsion IV 200 ML, MVI, adult No.4 with vit. K 10 ML, Trace element-5 inj. 1 ML in... IV SCH ×4 (17:00)
[2017-11-04 19:30] VITALS: BP 135/83
[2017-11-05] VITALS: BP 133/83
[2017-11-05] MEDS: normal saline 1000ml 1,000 ML IV SCH (04:56)
[2017-11-05] MEDS: morphine IR (immed. release) 30mg tablet PO PRN ×2 (05:52→11:30)
[2017-11-05 07:00] VITALS: BP 108/66
[2017-11-05] MEDS: midodrine tablet 2.5 MG TABLET PO SCH ×2 (07:52→12:32)
[2017-11-05] MEDS: morphine ER 15mg tablet PO SCH (07:52)
[2017-11-05] MEDS: duloxetine 30mg CAPSULE.DR PO SCH (07:52)
[2017-11-05] MEDS: K and/or MAG REPLACEMENT MC SCH (08:00)
[2017-11-05 11:00] VITALS: BP 120/76
[2017-11-05] MEDS: ondansetron/PF 4mg/2ml inj IV PRN (12:32)
== END 2017-11-05 14:10 | DRG 329 ==
LOC: ER 16:25 → ED HOLD 16:56 → SUR 3N 19:11 → PACU 10-29 14:03 → ICU 2S 10-29 22:05 → SUR 3N 10-31 17:06
PROVIDERS: ADMIT Internal Medicine; ATTEND Internal Medicine
PROC: 0D1B0Z4 Bypass Ileum to Cutaneous, Open Approach (ICD-10-PCS; 2017-10-29)
PROC: 30233N1 Transfusion of Nonautologous Red Blood Cells into Peripheral Vein, Percutaneous Approach (ICD-10-PCS; 2017-10-29)
PROC: 0DN80ZZ Release Small Intestine, Open Approach (ICD-10-PCS; principal; 2017-10-29 14:40)
PROC: 0JWTXXZ Revision of Tunneled Vascular Access Device in Trunk Subcutaneous Tissue and Fascia, External Approach (ICD-10-PCS; 2017-11-01)
DX: K91.2 Postsurgical malabsorption, not elsewhere classified (principal); E43 Unspecified severe protein-calorie malnutrition; N17.9 Acute kidney failure, unspecified; E86.0 Dehydration; B19.20 Unspecified viral hepatitis C without hepatic coma; F20.9 Schizophrenia, unspecified; I95.9 Hypotension, unspecified; D64.9 Anemia, unspecified; F42.4 Excoriation (skin-picking) disorder; G89.4 Chronic pain syndrome; Y83.8 Other surgical procedures as the cause of abnormal reaction of the patient, or of later complication, without mention of misadventure at the time of the procedure; I25.10 Atherosclerotic heart disease of native coronary artery without angina pectoris; E87.6 Hypokalemia; M21.371 Foot drop, right foot; Z90.49 Acquired absence of other specified parts of digestive tract; Z88.1 Allergy status to other antibiotic agents; Z88.6 Allergy status to analgesic agent; Z88.8 Allergy status to other drugs, medicaments and biological substances; Z68.25 Body mass index [BMI] 25.0-25.9, adult; Y92.89 Other specified places as the place of occurrence of the external cause
CPT/HCPCS: 36415; 80047; 80053; 81003; 82948; 83690; 83735; 84100; 84132; 84134; 84478; 85025; 86885; 86900; 86901; 86920; 87040; 87045; 87046; 87070; 87324; 87328; 87329; 87336; 87449; 89055; 93005; 97116; 97162; 97530; 99285; A4398; A4421; A6196; A6209; A6213; A6250; A6253; A6255; A6446; A6449; A7000; J0131; J0694; J1170; J2001; J2250; J2405; J2543; J2704; J3010; J3475; J3480; J7030; J7120; P9016; P9045

== ENCOUNTER 2020-06-25 10:32 | Emergency (ER) | payer MEDICARE, MEDICAID ==
[~2020-06-25] VITALS: Ht 170.2 cm; Wt 75.0 kg
[~2020-06-25 10:32] MED LIST changes: +DULO60CA45 PO; +FERR325T32 PO; -LACT1CAP65 PO; -LIDO35.4 TOP; -LIDO35.4 TP; +LIPA1CAP18 PO; +MIDO5TAB4 PO; +MORP-92 PO; +MORP15TA PO; -NYST30CR2 TP; -OLAN10TA3 PO; -ONDA4TAB12 PO; -OXYC-138 PO
[2020-06-25] MEDS ORDERED: normal saline 1000ML IV soln IVB ONE (12:25)
--- NOTE | 2020-06-25 12:46 | NUR ---
No RNs in-house trained to access [place] ports; checked w/ house sup also. HONORIO George aware; awaiting RN to perform US IV start for fluid bolus.
[2020-06-25 13:04] LABS: BASOPHILS % (AUTO) 0.6 % (0-1); EOSINOPHILS # (AUTO) 0.1 X10'3 (0-0.9); EOSINOPHILS % (AUTO) 1.3 % (0-6); LYMPHOCYTES # (AUTO) 1.3 X10'3 (1.1-4.8); LYMPHOCYTES % (AUTO) 16.8 % (21-51); MEAN CORPUSCULAR HEMOGLOBIN 29.5 PG (27.0-31.0); MEAN CORPUSCULAR HGB CONC 33.3 g/dL (33.0-36.5); MEAN CORPUSCULAR VOLUME 88.5 FL (78-98); MEAN PLATELET VOLUME 7.3 FL (7.4-10.4); MONOCYTES # (AUTO) 0.7 X10'3 (0-0.9); MONOCYTES % (AUTO) 8.2 % (2-12); NEUTROPHILS # (AUTO) 5.8 X10'3 (1.8-7.7); NEUTROPHILS % (AUTO) 73.1 % (42-75); PLATELET COUNT 260 X10'3 (140-440); RED BLOOD COUNT 5.09 X10'6 (4.20-5.60); RED CELL DISTRIBUTION WIDTH 13.7 % (11.5-14.5)
[2020-06-25 13:12] LABS: PARTIAL THROMBOPLASTIN TIME 28 SECONDS (22-32)
[2020-06-25 13:15] LABS: ALANINE AMINOTRANSFERASE 64 U/L (12-78); ALBUMIN 4.6 G/DL (3.4-5.0); ALBUMIN/GLOBULIN RATIO 1.1 (1.1-1.5); ALKALINE PHOSPHATASE 118 IU/L (46-116); ANION GAP 12 (8-16); ASPARTATE AMINO TRANSFERASE 62 U/L (10-37); BILIRUBIN,TOTAL 0.7 MG/DL (0.1-1.0); BLOOD UREA NITROGEN 26 MG/DL (7-18); BUN/CREATININE RATIO 13.1 (6.6-38.0); CALCIUM 9.5 MG/DL (8.5-10.1); CHLORIDE 99 MMOL/L (99-107); CREATININE 1.98 MG/DL (0.40-0.90); GLUCOSE 115 MG/DL (70-104); MAGNESIUM 2.6 MG/DL (1.5-2.4); POTASSIUM 4.7 MMOL/L (3.5-5.1); SODIUM 138 MMOL/L (135-145); TOTAL PROTEIN 8.9 G/DL (6.4-8.2); eGFR 26 ML/MIN
[2020-06-25 13:30] LABS: CLARITY,URINE SLIGHTLY CLOUDY (Clear); COLOR,URINE YELLOW (Yellow); GLUCOSE, URINE NEGATIVE (Neg); KETONES,URINE TRACE mg/dl (Neg); LEUKOCYTE ESTERASE ,URINE NEGATIVE (Neg); NITRITES, URINE NEGATIVE (Neg); OCCULT BLOOD,URINE NEGATIVE (Neg); PROTEIN,URINE 30 mg/dl (Neg); UROBILINOGEN,URINE 0.2 E.U/dL (0.2-1.0)
[2020-06-25 13:32] LABS: UA COLLECTION TYPE VOIDED
[2020-06-25 13:43] LABS: MUCUS STRANDS FEW /LPF (Neg); SQUAMOUS EPITHELIAL CELL,UR FEW /LPF (FEW)
[2020-06-25 13:48] LABS: BACTERIA,URINE FEW /HPF (Neg); RBC,URINE 0-2 /HPF (0-2); WBC,URINE 0-4 /HPF (0-4)
--- NOTE | 2020-06-25 14:14 | NUR ---
PTS FLUIDS HAVE INFUSED W/OUT DIFFICULTY, PT REPORTS FEELING MUCH BETTER, PA AWAKE
[2020-06-25 14:33] VITALS: BP 113/68
== END 2020-06-25 14:36 | disposition home or self-care (01) ==
LOC: ER 10:32
DX: R11.10 Vomiting, unspecified (principal); K91.1 Postgastric surgery syndromes; Z90.49 Acquired absence of other specified parts of digestive tract; Z79.899 Other long term (current) drug therapy; Z88.8 Allergy status to other drugs, medicaments and biological substances
CPT/HCPCS: 36415; 76937; 80053; 81001; 83735; 85025; 85610; 85730; 96360; 99284; J7030; 99283

== ENCOUNTER 2020-08-06 11:49 | Emergency (ER) | payer MEDICARE, MEDICAID ==
[~2020-08-06] VITALS: Ht 170.2 cm; Wt 72.7 kg
[2020-08-06 12:00] VITALS: BP 115/68
[2020-08-06] MEDS ORDERED: FLUC200T28 PO (13:03)
[2020-08-06] MEDS ORDERED: LIDO20SO16 PO (13:03)
== END 2020-08-06 13:12 | disposition home or self-care (01) ==
LOC: ER 11:50
DX: B37.9 Candidiasis, unspecified (principal); Z88.8 Allergy status to other drugs, medicaments and biological substances; Z79.899 Other long term (current) drug therapy
CPT/HCPCS: 99283

== ENCOUNTER 2021-12-14 14:11 | Emergency (ER) | payer MEDICARE, MEDICAID ==
[~2021-12-14] VITALS: Ht 170.2 cm; Wt 77.3 kg
[~2021-12-14 14:11] MED LIST changes: -DULO60CA45 PO; +DULO60CA59 PO; +LIDO20SO16 PO
[2021-12-14 14:55] VITALS: BP 142/70
[2021-12-14] MEDS ORDERED: SILV50CR31 TP (18:29)
== END 2021-12-14 19:13 | disposition home or self-care (01) ==
LOC: ER 14:12
DX: L30.1 Dyshidrosis [pompholyx] (principal); F20.9 Schizophrenia, unspecified; Z88.5 Allergy status to narcotic agent; Z88.8 Allergy status to other drugs, medicaments and biological substances; Z79.899 Other long term (current) drug therapy; Z88.1 Allergy status to other antibiotic agents
CPT/HCPCS: 99283

== ENCOUNTER 2021-12-24 12:23 | Emergency (ER) | payer MEDICARE, MEDICAID ==
[~2021-12-24] VITALS: Ht 170.2 cm; Wt 75.0 kg
[~2021-12-24 12:23] MED LIST changes: +SILV50CR31 TP
[2021-12-24 12:55] VITALS: BP 114/62
[2021-12-24] MEDS ORDERED: ketorolac trometh. 30mg/ml inj. IM ONE (13:35)
[2021-12-24] MEDS ORDERED: ondansetron 4mg rapidly disintigrating tab PO ONE (13:35)
[2021-12-24] MEDS ORDERED: IBUP-1986 PO (13:47)
[2021-12-24] MEDS ORDERED: ORPH100T2 PO (13:47)
== END 2021-12-24 13:59 | disposition home or self-care (01) ==
LOC: ER 12:23
DX: S16.1XXA Strain of muscle, fascia and tendon at neck level, initial encounter (principal); G44.209 Tension-type headache, unspecified, not intractable; Z88.5 Allergy status to narcotic agent; Z88.8 Allergy status to other drugs, medicaments and biological substances; Z88.1 Allergy status to other antibiotic agents; Z98.890 Other specified postprocedural states; V89.2XXA Person injured in unspecified motor-vehicle accident, traffic, initial encounter; Y93.89 Activity, other specified; Y92.89 Other specified places as the place of occurrence of the external cause; Y99.8 Other external cause status
CPT/HCPCS: 96372; 99283; J1885

== ENCOUNTER 2022-07-13 12:06 | Emergency (ER) | payer MEDICARE, MEDICAID ==
[~2022-07-13] VITALS: Ht 170.2 cm; Wt 71.0 kg
[~2022-07-13 12:06] MED LIST changes: +IBUP-1986 PO; +ORPH100T4 PO; -SILV50CR31 TP
[2022-07-13 12:19] VITALS: BP 125/57
== END 2022-07-13 14:37 | disposition left against medical advice (07) ==
LOC: ER 12:08
DX: R25.1 Tremor, unspecified (principal); Z53.21 Procedure and treatment not carried out due to patient leaving prior to being seen by health care provider
CPT/HCPCS: 99281

== ENCOUNTER 2022-07-22 21:50 | Emergency (ER) | payer MEDICARE, MEDICAID ==
[~2022-07-22] VITALS: Ht 170.2 cm; Wt 63.6 kg
--- NOTE | 2022-07-22 23:27 | NUR ---
MD reminded that patient has yet to be seen. Son at bedside upset.
[2022-07-22] MEDS ORDERED: normal saline 1000ml 1,000 ML IV ONE ×2 (23:40)
--- NOTE | 2022-07-23 | NUR ---
Patient able to get out of bed to bedside commode without difficulty. Patient acknowledged education on need for clean catch urine specimen, when RN returned patient had emptied ostomy bag into urine hat after urination.
[2022-07-23 01:00] LABS: BASOPHILS % (AUTO) 0.2 % (0-1); EOSINOPHILS % (AUTO) 0.5 % (0-6); HEMOGLOBIN 11.1 g/dl (12.0-16.0); LYMPHOCYTES # (AUTO) 0.5 X10'3 (1.1-4.8); LYMPHOCYTES % (AUTO) 12.8 % (21-51); MEAN CORPUSCULAR HEMOGLOBIN 25.9 PG (27.0-31.0); MEAN CORPUSCULAR HGB CONC 32.7 g/dL (33.0-36.5); MEAN CORPUSCULAR VOLUME 79.2 FL (78-98); MEAN PLATELET VOLUME 7.4 FL (7.4-10.4); MONOCYTES # (AUTO) 0.7 X10'3 (0-0.9); NEUTROPHILS # (AUTO) 2.9 X10'3 (1.8-7.7); NEUTROPHILS % (AUTO) 69.5 % (42-75); PLATELET COUNT 181 X10'3 (140-440); RED CELL DISTRIBUTION WIDTH 13.4 % (11.5-14.5); WHITE BLOOD COUNT 4.2 X10'3 (4.5-11.0)
[2022-07-23 01:18] LABS: ALBUMIN 3.6 G/DL (3.4-5.0); ANION GAP 6 (8-16); BILIRUBIN,TOTAL 0.6 MG/DL (0.1-1.0); BLOOD UREA NITROGEN 21 MG/DL (7-18); BUN/CREATININE RATIO 18.8 (10.0-20.0); CHLORIDE 101 MMOL/L (99-107); CREATININE 1.12 MG/DL (0.40-0.90); GLUCOSE 104 MG/DL (70-104); MAGNESIUM 1.7 MG/DL (1.5-2.4); POTASSIUM 3.3 MMOL/L (3.5-5.1); SODIUM 140 MMOL/L (135-145); TOTAL CARBON DIOXIDE 33.3 MMOL/L (24-32); TOTAL PROTEIN 6.7 G/DL (6.4-8.2); eGFR 50 ML/MIN
[2022-07-23 01:19] LABS: ALANINE AMINOTRANSFERASE 46 U/L (12-78); ALBUMIN/GLOBULIN RATIO 1.2 (1.1-1.5); ALKALINE PHOSPHATASE 74 IU/L (46-116); ASPARTATE AMINO TRANSFERASE 48 U/L (10-37)
[2022-07-23 02:13] LABS: TOTAL CELLS COUNTED 100
[2022-07-23 02:14] LABS: MICROCYTOSIS 1+; PLATELET ESTIMATE NORMAL
[2022-07-23 02:15] LABS: ELLIPTOCYTES FEW
--- NOTE | 2022-07-23 02:43 | NUR ---
Patient up to bedside commode to attempt UA for second time. Educated on clean catch sample and asked not to empty ostomy into urine hat.
--- NOTE | 2022-07-23 03:00 | NUR ---
Returned to room to retrieve urine specimen, patient had once again emptied ostomy baginto urine and stated "i forgot"... aware.
[2022-07-23] MEDS ORDERED: ONDA4TAB12 PO (03:21)
[2022-07-23] MEDS ORDERED: CEPH-585 PO (03:22)
--- NOTE | 2022-07-23 03:35 | NUR ---
Son called to pick patient up, stated he would be on his way.
[2022-07-23 04:04] VITALS: BP 122/74
== END 2022-07-23 04:06 | disposition home or self-care (01) ==
LOC: ER 21:50
DX: E86.0 Dehydration (principal); Z93.2 Ileostomy status; R30.0 Dysuria; I10 Essential (primary) hypertension; K21.9 Gastro-esophageal reflux disease without esophagitis; F32.A Depression, unspecified; F20.9 Schizophrenia, unspecified; Z90.49 Acquired absence of other specified parts of digestive tract; Z88.5 Allergy status to narcotic agent; Z88.8 Allergy status to other drugs, medicaments and biological substances; Z79.899 Other long term (current) drug therapy; Z79.1 Long term (current) use of non-steroidal anti-inflammatories (NSAID); Z79.2 Long term (current) use of antibiotics
CPT/HCPCS: 36415; 71045; 80053; 83605; 83735; 84145; 85007; 85025; 87040; 93005; 96360; 99285; J7030; 87077; 87186

== ENCOUNTER 2022-09-23 12:11 | Emergency (ER) | payer MEDICARE, MEDICAID ==
[~2022-09-23] VITALS: Ht 170.2 cm; Wt 59.0 kg
[~2022-09-23 12:11] MED LIST changes: +BUPR1FIL54 SL; +BUSP30TA3 PO; +CEPH-585 PO; +DICL100G31 TOP; +DICY20TA17 PO; -DIPH1TAB PO; +FAMO20TA8 PO; +FLUT15.87 INH; +HYDR50TA65 PO; +LAMO100T PO; -LIDO20SO16 PO; +LIDO30CR TOP; -LIPA1CAP18 PO; +MAGN400T56 PO; -MORP-92 PO; -MORP15TA PO; +ONDA-104 PO; -ORPH100T4 PO; +POTA-206 PO; +QUET25TA36 PO; +SILV50CR31 TOP; +TRAZ-256 PO; +VENL150C58 PO
[2022-09-23 12:16] VITALS: BP 133/68; PULSE 115; RESP 18; TEMP 98.7; O2SAT 99
[2022-09-23] MEDS ORDERED: CEPH-585 PO (14:06)
== END 2022-09-23 16:05 | disposition home or self-care (01) ==
LOC: ER 12:11
DX: T14.8XXA Other injury of unspecified body region, initial encounter (principal); I10 Essential (primary) hypertension; K21.9 Gastro-esophageal reflux disease without esophagitis; L08.89 Other specified local infections of the skin and subcutaneous tissue; L30.9 Dermatitis, unspecified; Z91.040 Latex allergy status; Z88.5 Allergy status to narcotic agent; Z88.8 Allergy status to other drugs, medicaments and biological substances; Z88.1 Allergy status to other antibiotic agents; Z79.2 Long term (current) use of antibiotics; Z79.899 Other long term (current) drug therapy; X58.XXXA Exposure to other specified factors, initial encounter; Y93.89 Activity, other specified; Y92.89 Other specified places as the place of occurrence of the external cause; Y99.8 Other external cause status
CPT/HCPCS: 99283

== ENCOUNTER 2022-09-23 16:21 | Emergency (ER) | payer MEDICARE, MEDICAID ==
[~2022-09-23] VITALS: Ht 170.2 cm; Wt 59.1 kg
[2022-09-23 17:41] VITALS: BP 120/56; PULSE 100; RESP 16; TEMP 97.8; O2SAT 100
[2022-09-23] MEDS ORDERED: normal saline 1000ML IV soln IVB ONE (21:25)
[2022-09-23 22:31] LABS: BASOPHILS # (AUTO) 0.1 X10'3 (0-0.2); BASOPHILS % (AUTO) 0.8 % (0-1); HEMATOCRIT 35.6 % (35.0-45.0); HEMOGLOBIN 11.2 g/dl (12.0-16.0); MEAN CORPUSCULAR HGB CONC 31.5 g/dL (33.0-36.5)
[2022-09-23 22:32] LABS: EOSINOPHILS % (AUTO) 0.4 % (0-6); LYMPHOCYTES # (AUTO) 2.3 X10'3 (1.1-4.8); MEAN CORPUSCULAR HEMOGLOBIN 25.5 PG (27.0-31.0); MEAN CORPUSCULAR VOLUME 80.9 FL (78-98); MEAN PLATELET VOLUME 6.9 FL (7.4-10.4); MONOCYTES # (AUTO) 1.2 X10'3 (0-0.9); MONOCYTES % (AUTO) 10.5 % (2-12); NEUTROPHILS # (AUTO) 7.5 X10'3 (1.8-7.7); NEUTROPHILS % (AUTO) 67.3 % (42-75); PLATELET COUNT 614 X10'3 (140-440); RED CELL DISTRIBUTION WIDTH 16.1 % (11.5-14.5); WHITE BLOOD COUNT 11.2 X10'3 (4.5-11.0)
[2022-09-23 22:46] LABS: ALANINE AMINOTRANSFERASE 27 U/L (12-78); ALBUMIN 2.8 G/DL (3.4-5.0); ALBUMIN/GLOBULIN RATIO 0.7 (1.1-1.5); ALKALINE PHOSPHATASE 80 IU/L (46-116); ANION GAP 16 (8-16); ASPARTATE AMINO TRANSFERASE 23 U/L (10-37); BILIRUBIN,TOTAL 0.6 MG/DL (0.1-1.0); BLOOD UREA NITROGEN 29 MG/DL (7-18); BUN/CREATININE RATIO 18.7 (10.0-20.0); CALCIUM 9.2 MG/DL (8.5-10.1); CHLORIDE 98 MMOL/L (99-107); CREATININE 1.55 MG/DL (0.40-0.90); GLUCOSE 87 MG/DL (70-104); POTASSIUM 3.9 MMOL/L (3.5-5.1); SODIUM 133 MMOL/L (135-145); TOTAL CARBON DIOXIDE 18.8 MMOL/L (24-32); TOTAL PROTEIN 6.6 G/DL (6.4-8.2); eGFR 34 ML/MIN
[2022-09-23] MEDS ORDERED: heparin sodium, porcine/PF 100unit/ml 5ML syringe IV STA (23:22)
== END 2022-09-23 23:38 | disposition home or self-care (01) ==
LOC: ER 16:30
DX: K94.09 Other complications of colostomy (principal); I10 Essential (primary) hypertension; K21.9 Gastro-esophageal reflux disease without esophagitis; Z91.040 Latex allergy status; Z88.5 Allergy status to narcotic agent; Z79.899 Other long term (current) drug therapy
CPT/HCPCS: 80053; 85025; 96361; 96374; 99283; J1642; J7030; L1930